=== PATIENT | male | born 1970 | race Caucasian/White ===

== ENCOUNTER 2020-11-08 08:41 | Outpatient (REF) | payer BC, SELFPAY ==
[2020-11-08 11:13] LABS: MANUAL DIFF FLAG NO
[2020-11-08 11:24] LABS: Basophils Percent Auto 0.3 % (0-2); Eosinophils Percent Auto 0.3 % (0-4); Hemoglobin 16.1 g/dl (14.0-18.0); Imm Gran Abs Auto 0.05 X10*3/uL (0.00-0.03); Imm Gran Pct Auto 0.4 % (0.0-0.4); Lymphocytes Absolute Auto 2.6 X10*3/uL (1.2-4.9); Lymphocytes Percent Auto 22.5 % (20-40); Mean Corpuscular HGB Conc 31.6 g/dl (31.0-36.0); Mean Corpuscular Hemoglobin 26.6 pg (27.0-33.0); Mean Corpuscular Volume 84.3 fL (80-98); Mean Platelet Volume 10.4 fL (9.4-12.4); Monocytes Absolute Auto 0.4 X10*3/uL (0.1-1.2); Monocytes Percent Auto 3.5 % (2-11); Neutrophils Absolute Auto 8.5 X10*3/uL (2.0-8.3); Platelet Count 257 X10*3/uL (160-400); Red Blood Count 6.05 X10*6/uL (4.60-5.80); Red Cell Distribution Width 13.1 % (11.0-16.0); White Blood Count 11.7 X10*3/uL (4.8-10.8)
[2020-11-08 11:34] LABS: Glucose Urine UA NEG (NEG); Leukocyte Esterase Urine NEG (NEG); Nitrite Urine NEG (NEG); Specific Gravity - Urine 1.025 (1.005-1.025); Urine Blood 2+ (NEG); Urine Ketones NEG (NEG); Urine Protein 1+ MG/DL (NEG-TRACE)
[2020-11-08 11:45] LABS: Appearance Urine TURBID; Color Urine YELLOW
[2020-11-08 12:12] LABS: Amorphous Sediment Urine 4+ /LPF; Mucus Urine 2+ /LPF; Squamous Epithelial Cell Urine 1+ /LPF; WBC Urine 0 /HPF (0-4)
[2020-11-08 12:16] LABS: Alanine Aminotransferase 34 U/L (0-40); Albumin Level 4.3 g/dL (3.5-5.0); Alkaline Phosphatase 84 U/L (39-117); Anion Gap 14 (12-20); Aspartate Amino Transferase 18 U/L (5-37); Bilirubin Total 0.6 mg/dL (0.0-1.0); Blood Urea Nitrogen 15 mg/dL (9-16); Calcium 9.1 mg/dL (8.4-10.2); Carbon Dioxide 26 mmol/L (22-29); Chloride 102 mmol/L (96-108); Cholesterol 178 mg/dL; Estimated Glomerular Filt Rate > 60; Glucose Fasting 116 mg/dL (60-99); HDL Cholesterol 40 mg/dL; LDL Cholesterol Calculated 122 mg/dl; Potassium 4.3 mmol/L (3.3-5.1); Sodium 138 mmol/L (135-145); Total Protein 7.7 g/dL (6.5-8.0); Triglycerides 80 mg/dL
[2020-11-08 14:22] LABS: Prostate Specific Antigen Scr 0.25 ng/mL (<0.05-4.0)
== END 2020-11-08 08:42 | disposition home or self-care (01) ==
LOC: HO.HMGCLDS 08:41
PROVIDERS: PCP Internal Medicine; Visit Provider Internal Medicine
DX: Z00.00 Encounter for general adult medical examination without abnormal findings (principal)
CPT/HCPCS: 36415; 80053; 80061; 81001; 84153; 85025

== ENCOUNTER 2020-12-01 07:31 | Outpatient (REF) | payer BC, SELFPAY ==
[2020-12-01 07:36] VITALS: BP 163/74; PULSE 60; RESP 16; TEMP 36.3; O2SAT 98
[2020-12-01 07:39] VITALS: BMI 37.3
[2020-12-01 08:28] VITALS: BP 149/82; PULSE 61; RESP 16; O2SAT 97
[2020-12-01 08:40] VITALS: BP 158/82; PULSE 58; RESP 20; O2SAT 97
[2020-12-01 08:56] LABS: CSF Appearance Clear, Colorless; CSF Tube # 1
[2020-12-01 09:18] LABS: Glucose CSF 81 mg/dL; Total Protein CSF 23.2 mg/dL (15-45)
[2020-12-01 09:38] LABS: Appearance CSF CLEAR; CSF Tube # 4; CSF Volume 1.5 ML; Color CSF COLORLESS; Red Blood Cell CSF 0 MM*3; White Blood Cell CSF 0 MM*3
[2020-12-01 09:40] LABS: CSF Monos 0 %; CSF Other Cells % 0 %; Lymphocytes CSF 0 %; Neutrophils CSF 0 %
[2020-12-01 09:50] VITALS: BP 152/70; PULSE 51; RESP 20
[2020-12-01 11:00] VITALS: BP 160/68; PULSE 56; RESP 18; O2SAT 98
== END 2020-12-01 11:00 | disposition home or self-care (01) ==
LOC: HO.MS 07:31
PROVIDERS: PCP Internal Medicine; Visit Provider Psychiatry & Neurology Neurology
PROC: 009U3ZZ Drainage of Spinal Canal, Percutaneous Approach (ICD-10-PCS; CPT 62270; principal; 2020-12-01 08:00)
DX: H47.10 Unspecified papilledema (principal); I10 Essential (primary) hypertension; E66.9 Obesity, unspecified; F41.8 Other specified anxiety disorders; G47.00 Insomnia, unspecified; Z88.0 Allergy status to penicillin; Z88.2 Allergy status to sulfonamides; Z79.899 Other long term (current) drug therapy
CPT/HCPCS: 62270; 82945; 84157; 87015; 87070; 87205; 89051

== ENCOUNTER 2020-12-15 13:37 | Outpatient (REF) | payer BC, SELFPAY ==
[2020-12-15 15:16] LABS: Blood Urea Nitrogen 18 mg/dL (9-16); Estimated Glomerular Filt Rate > 60
== END 2020-12-15 13:38 | disposition home or self-care (01) ==
LOC: HO.LAB 13:37
PROVIDERS: PCP Internal Medicine; Visit Provider Psychiatry & Neurology Neurology
DX: G93.2 Benign intracranial hypertension (principal)
CPT/HCPCS: 36415; 82565; 84520

== ENCOUNTER 2021-06-02 12:03 | Outpatient (REF) | payer BC, SELFPAY ==
[2021-06-02 14:02] LABS: Urine Cytology See Pathology rpt
[2021-06-02 14:08] LABS: MANUAL DIFF FLAG NO
[2021-06-02 14:24] LABS: Basophils Absolute Auto 0.1 X10*3/uL (0.0-0.2); Basophils Percent Auto 0.6 % (0-2); Eosinophils Absolute Auto 0.2 X10*3/uL (0.0-0.4); Eosinophils Percent Auto 2.1 % (0-4); Hematocrit 47.5 % (42-52); Hemoglobin 15.1 g/dl (14.0-18.0); Imm Gran Abs Auto 0.04 X10*3/uL (0.00-0.03); Imm Gran Pct Auto 0.4 % (0.0-0.4); Lymphocytes Absolute Auto 3.3 X10*3/uL (1.2-4.9); Mean Corpuscular HGB Conc 31.8 g/dl (31.0-36.0); Mean Corpuscular Hemoglobin 26.7 pg (27.0-33.0); Mean Corpuscular Volume 84.1 fL (80-98); Mean Platelet Volume 10.8 fL (9.4-12.4); Monocytes Absolute Auto 0.7 X10*3/uL (0.1-1.2); Monocytes Percent Auto 6.9 % (2-11); Neutrophils Absolute Auto 5.4 X10*3/uL (2.0-8.3); Platelet Count 256 X10*3/uL (160-400); Red Blood Count 5.65 X10*6/uL (4.60-5.80); White Blood Count 9.6 X10*3/uL (4.8-10.8)
[2021-06-02 14:37] LABS: Alanine Aminotransferase 27 U/L (0-40); Albumin Level 4.3 g/dL (3.5-5.0); Alkaline Phosphatase 94 U/L (39-117); Anion Gap 12 (12-20); Aspartate Amino Transferase 17 U/L (5-37); Bilirubin Total 0.5 mg/dL (0.0-1.0); Blood Urea Nitrogen 16 mg/dL (9-16); C Reactive Protein 0.52 mg/dL (< or = 0.50); Calcium 9.6 mg/dL (8.4-10.2); Carbon Dioxide 21 mmol/L (22-29); Chloride 109 mmol/L (96-108); Estimated Glomerular Filt Rate > 60; Glucose Random 114 mg/dL (60-115); Potassium 3.7 mmol/L (3.3-5.1); Sodium 138 mmol/L (135-145); Total Protein 7.3 g/dL (6.5-8.0)
== END 2021-06-02 12:04 | disposition home or self-care (01) ==
LOC: HO.HMGCLDS 12:03
PROVIDERS: PCP Internal Medicine; Visit Provider Internal Medicine
DX: I10 Essential (primary) hypertension (principal); E78.00 Pure hypercholesterolemia, unspecified; Z86.010 Personal history of colon polyps
CPT/HCPCS: 36415; 80053; 82550; 85025; 86140; 88112

== ENCOUNTER 2022-10-15 09:11 | Outpatient (REF) | payer BC, SELFPAY ==
[2022-10-15 11:03] LABS: MANUAL DIFF FLAG NO
[2022-10-15 11:13] LABS: Appearance Urine Turbid; Color Urine Yellow; Glucose Urine UA Negative (Negative); Leukocyte Esterase Urine Negative (Negative); Nitrite Urine Negative (Negative); Specific Gravity - Urine 1.025 (1.005-1.025); Urine Blood Negative (Negative); Urine Ketones Negative (Negative); Urine Protein Negative (Neg-Trace)
[2022-10-15 11:14] LABS: Basophils Absolute Auto 0.1 X10*3/uL (0.0-0.2); Basophils Percent Auto 0.7 % (0-2); Eosinophils Absolute Auto 0.2 X10*3/uL (0.0-0.4); Eosinophils Percent Auto 1.6 % (0-4); Hemoglobin 16.1 g/dl (14.0-18.0); Imm Gran Abs Auto 0.04 X10*3/uL (0.00-0.03); Imm Gran Pct Auto 0.4 % (0.0-0.4); Lymphocytes Absolute Auto 3.1 X10*3/uL (1.2-4.9); Lymphocytes Percent Auto 33.7 % (20-40); Mean Corpuscular HGB Conc 31.6 g/dl (31.0-36.0); Mean Corpuscular Hemoglobin 26.3 pg (27.0-33.0); Mean Corpuscular Volume 83.3 fL (80.0-98.0); Mean Platelet Volume 10.6 fL (9.4-12.4); Monocytes Absolute Auto 0.5 X10*3/uL (0.1-1.2); Monocytes Percent Auto 5.8 % (2-11); Neutrophils Absolute Auto 5.3 x10*3/uL (2.0-8.3); Neutrophils Percent Auto 57.8 % (45-73); Platelet Count 237 X10*3/uL (160-400); Red Blood Count 6.12 X10*6/uL (4.60-5.80); Red Cell Distribution Width 13.5 % (11.0-16.0); White Blood Count 9.1 X10*3/uL (4.8-10.8)
[2022-10-15 11:35] LABS: Alanine Aminotransferase 52 U/L (0-40); Albumin Level 4.1 g/dL (3.5-5.0); Alkaline Phosphatase 82 U/L (39-117); Anion Gap 9 (12-20); Aspartate Amino Transferase 24 U/L (5-37); Bilirubin Total 0.5 mg/dL (0.0-1.0); Blood Urea Nitrogen 18 mg/dL (9-16); Calcium 8.9 mg/dL (8.4-10.2); Carbon Dioxide 20 mmol/L (22-29); Chloride 111 mmol/L (96-108); Cholesterol 137 mg/dL; Estimated Glomerular Filt Rate > 60; Glucose Fasting 136 mg/dL (60-99); HDL Cholesterol 35 mg/dL; LDL Cholesterol Calculated 85 mg/dl; Potassium 3.7 mmol/L (3.3-5.1); Sodium 136 mmol/L (135-145); Total Protein 7.2 g/dL (6.5-8.0); Triglycerides 88 mg/dL
[2022-10-15 11:41] LABS: Prostate Specific Antigen 0.35 ng/mL (<0.05-4.0)
[2022-10-23 12:04] LABS: Testosterone, Free 60.2 pg/mL (35.0-155.0); Testosterone, Total 415 ng/dL (250-1100)
== END 2022-10-15 09:12 | disposition home or self-care (01) ==
LOC: HO.HMGCLDS 09:11
PROVIDERS: PCP Internal Medicine; Visit Provider Internal Medicine
DX: Z00.00 Encounter for general adult medical examination without abnormal findings (principal); Z12.5 Encounter for screening for malignant neoplasm of prostate
CPT/HCPCS: 36415; 80053; 80061; 81003; 84153; 84402; 84403; 85025

== ENCOUNTER 2023-01-14 09:38 | Outpatient (REF) | payer BC, SELFPAY ==
[2023-01-14 12:09] LABS: Glucose Random 87 mg/dL (60-115)
[2023-01-14 12:16] LABS: Estimated Average Glucose 103 mg/dL; Hemoglobin A1c % 5.2 %
== END 2023-01-14 09:39 | disposition home or self-care (01) ==
LOC: HO.HMGCLDS 09:38
PROVIDERS: PCP Internal Medicine; Visit Provider Internal Medicine
DX: R73.03 Prediabetes (principal)
CPT/HCPCS: 36415; 82947; 83036

== ENCOUNTER 2024-06-03 09:10 | Day surgery (SDC) | payer BC, SELFPAY ==
--- NOTE | ~2024-06-03 | FL_ITS ---
FLUOROSCOPIC LUMBAR PUNCTURE INDICATION: Idiopathic intracranial hypertension TECHNIQUE: Risks and benefits and possible complications were discussed with the patient and the consent form was signed. Patient was placed prone on the fluoroscopy table. The back was prepped and draped in routine sterile fashion. Betadine was used as a skin antiseptic. Utilizing fluoroscopic guidance, the L4-L5 interlaminar space was accessed with a 22 gague Charlette spinal needle and clear CSF fluid obtained. Opening pressure was 26 cm H2O. 10 cc of fluid was sent for analysis. The needle was removed without immediate complications. Total fluoroscopy time: 0.5 min FL/FL guided lumbar puncture LP IMPRESSION: Successful fluoroscopic-guided lumbar puncture. Opening pressure was 26 cm H2O. This procedure was performed by Jose Alfredo Cartwright PA-C and supervised by Dr. Beckett. Electronically signed by: Robel Beckett MD 06/04/2024 10:11 AM EDT
[2024-06-03 09:20] VITALS: BMI 32.8
[2024-06-03 11:58] VITALS: BP 126/49; PULSE 45; RESP 16; TEMP 36.2; O2SAT 99
[2024-06-03 12:15] VITALS: BP 118/64; PULSE 49; RESP 16; O2SAT 99
[2024-06-03 12:30] VITALS: BP 122/65; PULSE 50; RESP 16; TEMP 36.2; O2SAT 99
[2024-06-03 12:34] LABS: CSF Appearance Clear, Colorless; CSF Tube # 1
[2024-06-03 12:43] LABS: Glucose CSF 69 mg/dL; Total Protein CSF 35.2 mg/dL (15-45)
[2024-06-03 13:11] LABS: Appearance CSF CLEAR; CSF Tube # 4; CSF Volume 2.5 ML; Color CSF COLORLESS; Red Blood Cell CSF 0 MM*3; White Blood Cell CSF 0 MM*3
== END 2024-06-03 12:39 | disposition home or self-care (01) ==
PROVIDERS: Physician Assistant Surgical; PCP Internal Medicine; Visit Provider Psychiatry & Neurology Neurology
PROC: 009U3ZZ Drainage of Spinal Canal, Percutaneous Approach (ICD-10-PCS; CPT 62270; principal; 2024-06-03 11:00)
DX: G93.2 Benign intracranial hypertension (principal); H47.10 Unspecified papilledema; I10 Essential (primary) hypertension; E78.5 Hyperlipidemia, unspecified; E66.9 Obesity, unspecified; Z68.31 Body mass index [BMI] 31.0-31.9, adult; F32.A Depression, unspecified; F41.9 Anxiety disorder, unspecified; Z79.899 Other long term (current) drug therapy; Z88.0 Allergy status to penicillin; Z88.2 Allergy status to sulfonamides
CPT/HCPCS: 62328; 82945; 84157; 87015; 87070; 87205; 89051

== ENCOUNTER → 2024-06-03 11:00 | Outpatient (BNV) | payer BC, SELFPAY | PROVIDERS: PCP Internal Medicine; Visit Provider Radiology Diagnostic Radiology | DX: G93.2 Benign intracranial hypertension (principal) | CPT/HCPCS: 62328 ==

== ENCOUNTER 2024-06-13 09:11 | Outpatient (REF) | payer BC, SELFPAY ==
[2024-06-13 11:07] LABS: MANUAL DIFF FLAG NO
[2024-06-13 11:16] LABS: Basophils Absolute Auto 0.1 X10*3/uL (0.0-0.2); Basophils Percent Auto 0.8 % (0-2); Eosinophils Absolute Auto 0.2 X10*3/uL (0.0-0.4); Eosinophils Percent Auto 2.3 % (0-4); Hematocrit 50.3 % (42.0-52.0); Hemoglobin 16.3 g/dl (14.0-18.0); Imm Gran Abs Auto 0.04 X10*3/uL (0.00-0.03); Imm Gran Pct Auto 0.4 % (0.0-0.4); Lymphocytes Absolute Auto 3.3 X10*3/uL (1.2-4.9); Mean Corpuscular HGB Conc 32.4 g/dl (31.0-36.0); Mean Corpuscular Hemoglobin 27.3 pg (27.0-33.0); Mean Corpuscular Volume 84.3 fL (80.0-98.0); Mean Platelet Volume 9.9 fL (9.4-12.4); Monocytes Absolute Auto 0.7 X10*3/uL (0.1-1.2); Neutrophils Absolute Auto 5.2 x10*3/uL (2.0-8.3); Neutrophils Percent Auto 54.5 % (45-73); Platelet Count 227 X10*3/uL (160-400); Red Blood Count 5.97 X10*6/uL (4.60-5.80); Red Cell Distribution Width 14.1 % (11.0-16.0); White Blood Count 9.5 X10*3/uL (4.8-10.8)
[2024-06-13 11:21] LABS: Estimated Average Glucose 103 mg/dL; Hemoglobin A1c % 5.2 % (<6.0)
[2024-06-13 11:29] LABS: Alanine Aminotransferase 29 U/L (0-40); Albumin Level 4.2 g/dL (3.5-5.0); Alkaline Phosphatase 76 U/L (39-117); Anion Gap 8 (12-20); Aspartate Amino Transferase 18 U/L (5-37); Bilirubin Total 0.5 mg/dL (0.0-1.0); Blood Urea Nitrogen 22 mg/dL (9-16); Calcium 9.5 mg/dL (8.4-10.2); Carbon Dioxide 20 mmol/L (22-29); Chloride 111 mmol/L (96-108); Cholesterol 185 mg/dL (<200); Estimated Glomerular Filt Rate > 60; Glucose Fasting 88 mg/dL (60-99); HDL Cholesterol 34 mg/dL (>40); LDL Cholesterol Calculated 129 mg/dL (<100); Potassium 4.1 mmol/L (3.3-5.1); Sodium 135 mmol/L (135-145); Total Protein 7.6 g/dL (6.5-8.0); Triglycerides 114 mg/dL (<150)
[2024-06-13 11:41] LABS: Prostate Specific Antigen Scr 0.26 ng/mL (<0.05-4.0)
[2024-06-13 11:52] LABS: Microalbum/Creatinine Ratio Ur 3.7 ug/mg cr (<30)
== END 2024-06-13 09:12 | disposition home or self-care (01) ==
LOC: HO.HMGCLDS 09:11
PROVIDERS: PCP Internal Medicine; Visit Provider Internal Medicine
DX: I10 Essential (primary) hypertension (principal); E78.00 Pure hypercholesterolemia, unspecified; R73.03 Prediabetes; Z12.5 Encounter for screening for malignant neoplasm of prostate
CPT/HCPCS: 36415; 80053; 80061; 82043; 82570; 83036; 84153; 85025

== ENCOUNTER 2025-03-22 08:40 | Outpatient (REF) | payer BC, SELFPAY ==
--- OUTSIDE RECORDS SUMMARY | 2025-03-22 09:01 | XMS_ITS | Patient Health Record ---
Author Organization [facility] [address] Address [address] [place] [address] Care Team Providers Care Social Science Analyst Name Role Phone ERON TRISTAN Unavailable [phone] Allergies Allergen (clinical drug ingredient) Drug/Non Drug Allergy documented on EMR Reaction Allergy Type Onset Date Status Substance with sulfonamide structure and antibacterial mechanism of action (substance) Sulfa Antibiotics Unknown Drug Allergy Active Results Component Value Reference Range Notes EKG (Not yet reviewed by pro vider) Interpretation: Performing Lab: Notes/Report: ECGDiastolicBP 60 ECGHr 55 ECGPRInterval 164 ECGPWaveAxis 67 ECGQRSDuration 102 ECGQrsWaveAxis 24 ECGQTcInterval 386 ECGQTInterval 394 ECGSystolicBP 132 ECGTWaveAxis -14 RR_DiastolicBP 0 RR_MaxRRInterval 0 RR_MeanHR 0 RR_MeanRRInterval 0 RR_MinRRInterval 0 RR_NumBeats 0 RR_NumNormalBeats 0 RR_SystolicBP 0 Reason For Referral No Information Medications Medication SIG (Take, Route, Frequency, Duration) Notes Start Date End Date Status LORazepam 1 MG 1 tablet at bedtime as needed Orally Once a day Active traZODone HCl 50 MG 1 tablet at bedtime as needed Orally Once a day Active acetaZOLAMIDE ER 500 MG 1 capsule Orally Twice a day Active Zepbound 7.5 MG/0.5ML 0.5 mL Subcutaneou s weekly for 30 days 09/16/2024 Not-Taking Simvastatin 20 MG 1 tablet in the even ing Orally Once a day Active FLUoxetine HCl 20 MG 1 tablet Orally Onc e a day Active Social History Tobacco Use: Social History Observation Description Date Details (start date - stop date) Current Smoker NA - NA Tobacco Use/Smoking Question Answer Notes Are you a current smoker How often do you smoke cigarettes? every day Section Notes: Tob: Started at age 8, quit 1996, 27 years ( 1 PPD) ETOH: None Drug: None Work: [employer] Problems Problem Type SNOMED Code ICD Code Onset Dates Problem Status W/U Status Risk Notes Problem 250177264 Other obesity du e to excess calories (E66.09) Active confirmed Problem Hyperlipidemia, unspecified (E78.5) Active confirmed Problem Hydrocephalus (897766096) Hydrocephalus, unspecified (G91.9) Active confirmed Problem 92478707 Benign intracranial hypertension (G93.2) Active confirmed Problem 58263656 Essential (primary) hypertension (I10) Active confirmed Problem 32607864 Bradycardia, unspecified (R00.1) Active confirmed Problem 80117541 Hyperlipidemia, unspecified hyperlipidemia type (E78.5) Active confirmed Problem 39106001 Depression, unspecified depression type (F32.9) Active confirmed Problem 19354706 Hypothyroidism, unspecified type (E03.9) Active confirmed Problem Obese class I (finding) (376343638472009) Obesity (BMI 30.0-34.9) (E66.9) Active confirmed Problem 417802011 Obesity (BMI 30-39.9) (E66.9) Active confirmed Problem 612117491 Body mass index [BMI] 32.0-32.9, adult (Z68.32) Active confirmed Problem 936522413 Body mass index [BMI] 33.0-33.9, adult (Z68.33) Active confirmed Problem 964895309 Body mass index [BMI] 34.0-34.9, adult (Z68.34) Active confirmed Problem Obese class II (506418315276789) BMI 37.0-37.9, adult (Z68.37) Active confirmed Problem BMI 30+ - obesity (449605823) BMI 32.0-32.9,adult (Z68.32) Active confirmed Problem 99571627 Anemia due to vitamin B12 deficiency, unspecified B12 deficiency type (D51.9) Active confirmed Problem Body mass index 30.00 to 34.99 (520701953782621) BMI 34.0-34.9,adult (Z68.34) Active confirmed Vital Signs Heart Rate 63 /min 02/25/2025 Oximetry 96 % 02/25/2025 Blood pressure diastolic 60 mm Hg 02/25/2025 Height 69 in 02/25/2025 Blood pressure systolic 132 mm Hg 02/25/2025 Weight 218.6 lbs 02/25/2025 BMI 32.28 kg/m2 02/25/2025 Encounters Encounter Location Date Provider Diagnosis [facility] [address] [place] [address] 04/14/2024 ERON AZALEA Obesity (BMI 30-39.9 ) E66.9 ; BMI 34.0-34.9,adult Z68.34 ; Hydrocephalus, unspecified G91.9 and Dietary counseling and surveillance Z71.[address] [facility] [address] [place], [place] 06/02/2024 ERON AZALEA Obesity (BMI 30-39.9 ) E66.9 ; BMI 32.0-32.9,adult Z68.32 ; Hydrocephalus, unspecified G91.9 and Dietary counseling and surveillance Z71.3 [facility] [address] [place] [address] 07/21/2024 ERON AZALEA Obesity (BMI 30-39.9 ) E66.9 ; BMI 32.0-32.9,adult Z68.32 ; Hydrocephalus, unspecified G91.9 and Dietary counseling and surveillance Z71.[address] [facility] [address] [place] [phone] 09/16/2024 ERON AZALEA Obesity (BMI 30-39.9 ) E66.9 ; BMI 32.0-32.9,adult Z68.32 ; Hydrocephalus, unspecified G91.9 and Dietary counseling and surveillance Z71.3 [facility] [address] [place] [address] 02/25/2025 ERON AZALEA Slow heart rate R00. 1 ; Obesity (BMI 30-39.9) E66.9 ; BMI 32.0-32.9,adult Z68.32 ; Hydrocephalus, unspecified G91.9 ; Dietary counseling and surveillance Z71.3 and Encounter for blood pressure examination Z01.30 [facility] [address] [place] [phone] 03/30/2024 ERON AZALEA [facility] [address] [place] [address] 11/03/2024 ERON TRISTAN [facility] [address] [facility] [address] [place] [phone] 11/05/[address]STAN [facility] [address] [place] [address] 02/25/2025 ERON TRISTAN Bradycardia, unspeci fied R00.1 ; Annual physical exam Z00.00 ; Hyperlipidemia, unspecified hyperlipidemia type E78.5 ; Hypothyroidism, unspecified type E03.9 and Anemia due to vitamin B12 deficiency, unspecified B12 deficiency type D51.9 Assessments Encounter Date Diagnosis (ICD Code) Assessment Notes Treatment Notes Treatment Clinical Notes Section Notes 04/14/2024 Obesity (BMI 30-39.9) (ICD-10 - E66.9) # Hydrocephalus; Undergoing treatment in [facility] on May 05 2024, instructed to hold Zepound starting next week # HTN. Currently on antihypertensives, 120/80 mmHg in office today. # Obesity 01/31/23: BMI 32, Weight 221. Continue Saxenda. Patient unsure if he needs refill. Denies side effects. Continue adequate protein intake of 80 grams a day, water intake 80 oz of water. Increase muscle mass. 06/13/23 BMI 32.56 Weight 220.5 Patient has been off Saxenda due to supply issues x1.5 weeks [facility] since January down 6lbs of fat and up 4lbs of muscle. Discussed with patient increasing water intake and protein intake and possibly of getting medication from [facility], [facility] or [facility], Mail order, if not consider [facility]. Talking about slowly titrating back up not to start back on 3mg 01/16/24: BMI 33, Weight 231. 10 lb weight gain since 05/2023. Discussed Zepbound as option, will need PA. Can take up to 30 days for PA to be responded to. Discussed eating high protein lunch and increasing water intake. Denies current issues with constipation 04/14/24: BMI 32.81, Weight 222.2. Patient currently taking Zepound 5mg . Endorses slight nausea. Denies diarrhea / constipation. Encouraged to keep protein intake high and excerise. Will receive MICC injection today in office. Advised to stop zepound next week due to LP on May 01 for hydrocephalous, then continue Zepound a few days after procedure. Total time spent with patient was 30 minutes, over half the time being [id number] interaction. Case discussed with collaborating physician Shayla Josue who reviewed the assessment and plan. Chart, medications, labs, vital signs reviewed. Dictation was accomplished with the use of [employer] voice recognition software, prone to medical misidentifications and grammatical errors. This is unintentional and the practitioner does try to identify and correct these, but some could still be present. Please do not hesitate to contact practitioner for clarification. All questions answered to patients satisfaction. Patient verbalized understanding of diagnosis and treatments explained. To call sooner prior to next visit it any questions/concerns arise. 04/14/2024 BMI 34.0-34.9,adult (ICD-10 - Z68.34) # Hydrocephalus; Undergoing treatment in [facility] on May 05 2024, instructed to hold Zepound starting next week # HTN. Currently on antihypertensives, 120/80 mmHg in office today. # Obesity 01/31/23: BMI 32, Weight 221. Continue Saxenda. Patient unsure if he needs refill. Denies side effects. Continue adequate protein intake of 80 grams a day, water intake 80 oz of water. Increase muscle mass. 06/13/23 BMI 32.56 Weight 220.5 Patient has been off Saxenda due to supply issues x1.5 weeks [facility] since January down 6lbs of fat and up 4lbs of muscle. Discussed with patient increasing water intake and protein intake and possibly of getting medication from [facility], if not consider [facility]. Talking about slowly titrating back up not to start back on 3mg 01/16/24: BMI 33, Weight 231. 10 lb weight gain since 05/2023. Discussed Zepbound as option, will need PA. Can take up to 30 days for PA to be responded to. Discussed eating high protein lunch and increasing water intake. Denies current issues with constipation 04/14/24: BMI 32.81, Weight 222.2. Patient currently taking Zepound 5mg . Endorses slight nausea. Denies diarrhea / constipation. Encouraged to keep protein intake high and excerise. Will receive MICC injection today in office. Advised to stop zepound next week due to LP on May 01 for hydrocephalous, then continue Zepound a few days after procedure. Total time spent with patient was 30 minutes, over half the time being [id number] interaction. Case discussed with collaborating physician Shayla Josue who reviewed the assessment and plan. Chart, medications, labs, vital signs reviewed. Dictation was accomplished with the use of [employer] voice recognition software, prone to medical misidentifications and grammatical errors. This is unintentional and the practitioner does try to identify and correct these, but some could still be present. Please do not hesitate to contact practitioner for clarification. All questions answered to patients satisfaction. Patient verbalized understanding of diagnosis and treatments explained. To call sooner prior to next visit it any questions/concerns arise. 06/02/2024 Obesity (BMI 30-39.9) (ICD-10 - E66.9) # Hydrocephalus; Undergoing treatment in [facility] on Jun 02 2024, instructed to hold Zepound starting next week # HTN. Currently on antihypertensives, 120/80 mmHg in office today. # Obesity 01/31/23: BMI 32, Weight 221. Continue Saxenda. Patient unsure if he needs refill. Denies side effects. Continue adequate protein intake of 80 grams a day, water intake 80 oz of water. Increase muscle mass. 06/13/23 BMI 32.56 Weight 220.5 Patient has been off Saxenda due to supply issues x1.5 weeks [facility] since January down 6lbs of fat and up 4lbs of muscle. Discussed with patient increasing water intake and protein intake and possibly of getting medication [facility], [facility], if not consider [facility]. Talking about slowly titrating back up not to start back on 3mg 01/16/24: BMI 33, Weight 231. 10 lb weight gain since 05/2023. Discussed Zepbound as option, will need PA. Can take up to 30 days for PA to be responded to. Discussed eating high protein lunch and increasing water intake. Denies current issues with constipation 04/14/24: BMI 32.81, Weight 222.2. Patient currently taking Zepound 5mg . Endorses slight nausea. Denies diarrhea / constipation. Encouraged to keep protein intake high and excerise. Will receive MICC injection today in office. Advised to stop zepound next week due to LP on May 01 for hydrocephalous, then continue Zepound a few days after procedure. 06/02/24: BMI 32, Weight 222. Lost 4 lb of fat since last visit. Reports he skips lunch often, only getting about 60 grams of protein. Needs to increase protein intake. Has held Zepbound x 2 weeks in prep for tomorrow. Will refill Zepbound 5 mg subcu today Total time spent with patient was 30 minutes, over half the time being [id number] interaction. Case discussed with collaborating physician Shayla Josue who reviewed the assessment and plan. Chart, medications, labs, vital signs reviewed. Dictation was accomplished with the use of [employer] voice recognition software, prone to medical misidentifications and grammatical errors. This is unintentional and the practitioner does try to identify and correct these, but some could still be present. Please do not hesitate to contact practitioner for clarification. All questions answered to patients satisfaction. Patient verbalized understanding of diagnosis and treatments explained. To call sooner prior to next visit it any questions/concerns arise. 06/02/2024 BMI 32.0-32.9,adult (ICD-10 - Z68.32) # Hydrocephalus; Undergoing treatment in [facility] on Jun 02 2024, instructed to hold Zepound starting next week # HTN. Currently on antihypertensives, 120/80 mmHg in office today. # Obesity 01/31/23: BMI 32, Weight 221. Continue Saxenda. Patient unsure if he needs refill. Denies side effects. Continue adequate protein intake of 80 grams a day, water intake 80 oz of water. Increase muscle mass. 06/13/23 BMI 32.56 Weight 220.5 Patient has been off Saxenda due to supply issues x1.5 weeks [facility] since January down 6lbs of fat and up 4lbs of muscle. Discussed with patient increasing water intake and protein intake and possibly of getting medication from [facility], [facility] or [facility], Mail order, if not consider [facility]. Talking about slowly titrating back up not to start back on 3mg 01/16/24: BMI 33, Weight 231. 10 lb weight gain since 05/2023. Discussed Zepbound as option, will need PA. Can take up to 30 days for PA to be responded to. Discussed eating high protein lunch and increasing water intake. Denies current issues with constipation 04/14/24: BMI 32.81, Weight 222.2. Patient currently taking Zepound 5mg . Endorses slight nausea. Denies diarrhea / constipation. Encouraged to keep protein intake high and excerise. Will receive MICC injection today in office. Advised to stop zepound next week due to LP on May 01 for hydrocephalous, then continue Zepound a few days after procedure. 06/02/24: BMI 32, Weight 222. Lost 4 lb of fat since last visit. Reports he skips lunch often, only getting about 60 grams of protein. Needs to increase protein intake. Has held Zepbound x 2 weeks in prep for LP tomorrow. Will refill Zepbound 5 mg subcu today Total time spent with patient was 30 minutes, over half the time being [id number] interaction. Case discussed with collaborating physician Shayla Josue who reviewed the assessment and plan. Chart, medications, labs, vital signs reviewed. Dictation was accomplished with the use of [employer] voice recognition software, prone to medical misidentifications and grammatical errors. This is unintentional and the practitioner does try to identify and correct these, but some could still be present. Please do not hesitate to contact practitioner for clarification. All questions answered to patients satisfaction. Patient verbalized understanding of diagnosis and treatments explained. To call sooner prior to next visit it any questions/concerns arise. 07/21/2024 Obesity (BMI 30-39.9) (ICD-10 - E66.9) # Hydrocephalus; Undergoing treatment in [facility] on Jun 02 2024, instructed to hold Zepound starting next week # HTN. Currently on antihypertensives, 120/80 mmHg in office today. # Obesity 01/31/23: BMI 32, Weight 221. Continue Saxenda. Patient unsure if he needs refill. Denies side effects. Continue adequate protein intake of 80 grams a day, water intake 80 oz of water. Increase muscle mass. 06/13/23 BMI 32.56 Weight 220.5 Patient has been off Saxenda due to supply issues x1.5 weeks [facility] since January down 6lbs of fat and up 4lbs of muscle. Discussed with patient increasing water intake and protein intake and possibly of getting medication from [facility], [facility] or [facility], Mail order, if not consider [facility]. Talking about slowly titrating back up not to start back on 3mg 01/16/24: BMI 33, Weight 231. 10 lb weight gain since 05/2023. Discussed Zepbound as option, will need PA. Can take up to 30 days for PA to be responded to. Discussed eating high protein lunch and increasing water intake. Denies current issues with constipation 04/14/24: BMI 32.81, Weight 222.2. Patient currently taking Zepound 5mg . Endorses slight nausea. Denies diarrhea / constipation. Encouraged to keep protein intake high and excerise. Will receive MICC injection today in office. Advised to stop zepound next week due to LP on May 01 for hydrocephalous, then continue Zepound a few days after procedure. 06/02/24: BMI 32, Weight 222. Lost 4 lb of fat since last visit. Reports he skips lunch often, only getting about 60 grams of protein. Needs to increase protein intake. Has held Zepbound x 2 weeks in prep for LP tomorrow. Will refill Zepbound 5 mg subcu today 07/21/24: BMI 32, Weight 218. Congratulated on efforts. Will increase to Zepbound 7.5 mg subcu weekly. Continue adequate protein intake and exrecise. Total time spent with patient was 30 minutes, over half the time being [id number] interaction. Case discussed with collaborating physician Shayla Josue who reviewed the assessment and plan. Chart, medications, labs, vital signs reviewed. Dictation was accomplished with the use of [employer] voice recognition software, prone to medical misidentifications and grammatical errors. This is unintentional and the practitioner does try to identify and correct these, but some could still be present. Please do not hesitate to contact practitioner for clarification. All questions answered to patients satisfaction. Patient verbalized understanding of diagnosis and treatments explained. To call sooner prior to next visit it any questions/concerns arise. 07/21/2024 BMI 32.0-32.9,adult (ICD-10 - Z68.32) # Hydrocephalus; Undergoing treatment in [facility] on Jun 02 2024, instructed to hold Zepound starting next week # HTN. Currently on antihypertensives, 120/80 mmHg in office today. # Obesity 01/31/23: BMI 32, Weight 221. Continue Saxenda. Patient unsure if he needs refill. Denies side effects. Continue adequate protein intake of 80 grams a day, water intake 80 oz of water. Increase muscle mass. 06/13/23 BMI 32.56 Weight 220.5 Patient has been off Saxenda due to supply issues x1.5 weeks [facility] since January down 6lbs of fat and up 4lbs of muscle. Discussed with patient increasing water intake and protein intake and possibly of getting medication from [facility], [facility] or [facility], Mail order, if not consider [facility]. Talking about slowly titrating back up not to start back on 3mg 01/16/24: BMI 33, Weight 231. 10 lb weight gain since 05/2023. Discussed Zepbound as option, will need PA. Can take up to 30 days for PA to be responded to. Discussed eating high protein lunch and increasing water intake. Denies current issues with constipation 04/14/24: BMI 32.81, Weight 222.2. Patient currently taking Zepound 5mg . Endorses slight nausea. Denies diarrhea / constipation. Encouraged to keep protein intake high and excerise. Will receive MICC injection today in office. Advised to stop zepound next week due to LP on May 01 for hydrocephalous, then continue Zepound a few days after procedure. 06/02/24: BMI 32, Weight 222. Lost 4 lb of fat since last visit. Reports he skips lunch often, only getting about 60 grams of protein. Needs to increase protein intake. Has held Zepbound x 2 weeks in prep for LP tomorrow. Will refill Zepbound 5 mg subcu today 07/21/24: BMI 32, Weight 218. Congratulated on efforts. Will increase to Zepbound 7.5 mg subcu weekly. Continue adequate protein intake and exrecise. Total time spent with patient was 30 minutes, over half the time being [id number] interaction. Case discussed with collaborating physician Shayla Josue who reviewed the assessment and plan. Chart, medications, labs, vital signs reviewed. Dictation was accomplished with the use of [employer] voice recognition software, prone to medical misidentifications and grammatical errors. This is unintentional and the practitioner does try to identify and correct these, but some could still be present. Please do not hesitate to contact practitioner for clarification. All questions answered to patients satisfaction. Patient verbalized understanding of diagnosis and treatments explained. To call sooner prior to next visit it any questions/concerns arise. 09/16/2024 Obesity (BMI 30-39.9) (ICD-10 - E66.9) # Hydrocephalus; Undergoing treatment in [facility] on Jun 02 2024 # HTN. Currently on antihypertensives, 120/80 mmHg in office today. # Obesity 01/31/23: BMI 32, Weight 221. Continue Saxenda. Patient unsure if he needs refill. Denies side effects. Continue adequate protein intake of 80 grams a day, water intake 80 oz of water. Increase muscle mass. 06/13/23 BMI 32.56 Weight 220.5 Patient has been off Saxenda due to supply issues x1.5 weeks [facility] since January down 6lbs of fat and up 4lbs of muscle. Discussed with patient increasing water intake and protein intake and possibly of getting medication from [facility], [facility] or [facility], Mail order, if not consider [facility]. Talking about slowly titrating back up not to start back on 3mg 01/16/24: BMI 33, Weight 231. 10 lb weight gain since 05/2023. Discussed Zepbound as option, will need PA. Can take up to 30 days for PA to be responded to. Discussed eating high protein lunch and increasing water intake. Denies current issues with constipation 04/14/24: BMI 32.81, Weight 222.2. Patient currently taking Zepound 5mg . Endorses slight nausea. Denies diarrhea / constipation. Encouraged to keep protein intake high and excerise. Will receive MICC injection today in office. Advised to stop zepound next week due to LP on May 01 for hydrocephalous, then continue Zepound a few days after procedure. 06/02/24: BMI 32, Weight 222. Lost 4 lb of fat since last visit. Reports he skips lunch often, only getting about 60 grams of protein. Needs to increase protein intake. Has held Zepbound x 2 weeks in prep for LP tomorrow. Will refill Zepbound 5 mg subcu today 07/21/24: BMI 32, Weight 218. Congratulated on efforts. Will increase to Zepbound 7.5 mg subcu weekly. Continue adequate protein intake and exrecise. 09/16/24: BMI 32, Weight 213. Never increase Zepbound, will increase to 7.5 mg. Doing well wiht fat loss. Congratulated on efforts. Total time spent with patient was 30 minutes, over half the time being [id number] interaction. Case discussed with collaborating physician Sarah Josue who reviewed the assessment and plan. Chart, medications, labs, vital signs reviewed. Dictation was accomplished with the use of [employer] voice recognition software, prone to medical misidentifications and grammatical errors. This is unintentional and the practitioner does try to identify and correct these, but some could still be present. Please do not hesitate to contact practitioner for clarification. All questions answered to patients satisfaction. Patient verbalized understanding of diagnosis and treatments explained. To call sooner prior to next visit it any questions/concerns arise. 09/16/2024 BMI 32.0-32.9,adult (ICD-10 - Z68.32) # Hydrocephalus; Undergoing treatment in [facility] on Jun 02 2024 # HTN. Currently on antihypertensives, 120/80 mmHg in office today. # Obesity 01/31/23: BMI 32, Weight 221. Continue Saxenda. Patient unsure if he needs refill. Denies side effects. Continue adequate protein intake of 80 grams a day, water intake 80 oz of water. Increase muscle mass. 06/13/23 BMI 32.56 Weight 220.5 Patient has been off Saxenda due to supply issues x1.5 weeks [facility] since January down 6lbs of fat and up 4lbs of muscle. Discussed with patient increasing water intake and protein intake and possibly of getting medication from [facility], [facility] if not [facility]. Talking about slowly titrating back up not to start back on 3mg 01/16/24: BMI 33, Weight 231. 10 lb weight gain since 05/2023. Discussed Zepbound as option, will need PA. Can take up to 30 days for PA to be responded to. Discussed eating high protein lunch and increasing water intake. Denies current issues with constipation 04/14/24: BMI 32.81, Weight 222.2. Patient currently taking Zepound 5mg . Endorses slight nausea. Denies diarrhea / constipation. Encouraged to keep protein intake high and excerise. Will receive MICC injection today in office. Advised to stop zepound next week due to LP on May 01 for hydrocephalous, then continue Zepound a few days after procedure. 06/02/24: BMI 32, Weight 222. Lost 4 lb of fat since last visit. Reports he skips lunch often, only getting about 60 grams of protein. Needs to increase protein intake. Has held Zepbound x 2 weeks in prep for LP tomorrow. Will refill Zepbound 5 mg subcu today 07/21/24: BMI 32, Weight 218. Congratulated on efforts. Will increase to Zepbound 7.5 mg subcu weekly. Continue adequate protein intake and exrecise. 09/16/24: BMI 32, Weight 213. Never increase Zepbound, will increase to 7.5 mg. Doing well wiht fat loss. Congratulated on efforts. Total time spent with patient was 30 minutes, over half the time being [id number] interaction. Case discussed with collaborating physician Sarah Josue who reviewed the assessment and plan. Chart, medications, labs, vital signs reviewed. Dictation was accomplished with the use of [employer] voice recognition software, prone to medical misidentifications and grammatical errors. This is unintentional and the practitioner does try to identify and correct these, but some could still be present. Please do not hesitate to contact practitioner for clarification. All questions answered to patients satisfaction. Patient verbalized understanding of diagnosis and treatments explained. To call sooner prior to next visit it any questions/concerns arise. 02/25/2025 Obesity (BMI 30-39.9) (ICD-10 - E66.9) # Hydrocephalus; Undergoing treatment in [place]. Followed by Dr. Lee locally. # HTN. Currently on antihypertensives, 120/80 mmHg in office today. Discotninued due to low HR # Obesity: Formerly on Zepbound, copay too high # BRadycardia: EKG showing bradycardia. Reportedly issue in past. WIll obtain cardiology records. EKG shows bradycarida. Case discussed with collaborating physician Sarah Josue who reviewed the assessment and plan. Chart, medications, labs, vital signs reviewed. Dictation was accomplished with the use of [employer] voice recognition software, prone to medical misidentifications and grammatical errors. This is unintentional and the practitioner does try to identify and correct these, but some could still be present. Please do not hesitate to contact practitioner for clarification. All questions answered to patients satisfaction. Patient verbalized understanding of diagnosis and treatments explained. To call sooner prior to next visit it any questions/concerns arise. 02/25/2025 Slow heart rate (ICD-10 - R00.1) # Hydrocephalus; Undergoing treatment in [place]. Followed by Dr. Lee locally. # HTN. Currently on antihypertensives, 120/80 mmHg in office today. Discotninued due to low HR # Obesity: Formerly on Zepbound, copay too high # BRadycardia: EKG showing bradycardia. Reportedly issue in past. WIll obtain cardiology records. EKG shows bradycarida. Case discussed with collaborating physician Sarah Josue who reviewed the assessment and plan. Chart, medications, labs, vital signs reviewed. Dictation was accomplished with the use of [employer] voice recognition software, prone to medical misidentifications and grammatical errors. This is unintentional and the practitioner does try to identify and correct these, but some could still be present. Please do not hesitate to contact practitioner for clarification. All questions answered to patients satisfaction. Patient verbalized understanding of diagnosis and treatments explained. To call sooner prior to next visit it any questions/concerns arise. 02/25/2025 Bradycardia, unspecified (ICD-10 - R00.1) 02/25/2025 Annual physical exam (ICD-10 - Z00.00) 02/25/2025 BMI 32.0-32.9,adult (ICD-10 - Z68.32) # Hydrocephalus; Undergoing treatment in [place]. Followed by Dr. Lee locally. # HTN. Currently on antihypertensives, 120/80 mmHg in office today. Discotninued due to low HR # Obesity: Formerly on Zepbound, copay too high # BRadycardia: EKG showing bradycardia. Reportedly issue in past. WIll obtain cardiology records. EKG shows bradycarida. Case discussed with collaborating physician Sarah Josue who reviewed the assessment and plan. Chart, medications, labs, vital signs reviewed. Dictation was accomplished with the use of [employer] voice recognition software, prone to medical misidentifications and grammatical errors. This is unintentional and the practitioner does try to identify and correct these, but some could still be present. Please do not hesitate to contact practitioner for clarification. All questions answered to patients satisfaction. Patient verbalized understanding of diagnosis and treatments explained. To call sooner prior to next visit it any questions/concerns arise. 09/16/2024 Hydrocephalus, unspecified (ICD-10 - G91.9) # Hydrocephalus; Undergoing treatment in [facility] on Jun 02 2024 # HTN. Currently on antihypertensives, 120/80 mmHg in office today. # Obesity 01/31/23: BMI 32, Weight 221. Continue Saxenda. Patient unsure if he needs refill. Denies side effects. Continue adequate protein intake of 80 grams a day, water intake 80 oz of water. Increase muscle mass. 06/13/23 BMI 32.56 Weight 220.5 Patient has been off Saxenda due to supply issues x1.5 weeks [facility] since January down 6lbs of fat and up 4lbs of muscle. Discussed with patient increasing water intake and protein intake and possibly of getting medication from [facility], [facility] or [facility], Mail order, if not consider [facility]. Talking about slowly titrating back up not to start back on 3mg 01/16/24: BMI 33, Weight 231. 10 lb weight gain since 05/2023. Discussed Zepbound as option, will need PA. Can take up to 30 days for PA to be responded to. Discussed eating high protein lunch and increasing water intake. Denies current issues with constipation 04/14/24: BMI 32.81, Weight 222.2. Patient currently taking Zepound 5mg . Endorses slight nausea. Denies diarrhea / constipation. Encouraged to keep protein intake high and excerise. Will receive MICC injection today in office. Advised to stop zepound next week due to LP on May 01 for hydrocephalous, then continue Zepound a few days after procedure. 06/02/24: BMI 32, Weight 222. Lost 4 lb of fat since last visit. Reports he skips lunch often, only getting about 60 grams of protein. Needs to increase protein intake. Has held Zepbound x 2 weeks in prep for LP tomorrow. Will refill Zepbound 5 mg subcu today 07/21/24: BMI 32, Weight 218. Congratulated on efforts. Will increase to Zepbound 7.5 mg subcu weekly. Continue adequate protein intake and exrecise. 09/16/24: BMI 32, Weight 213. Never increase Zepbound, will increase to 7.5 mg. Doing well wiht fat loss. Congratulated on efforts. Total time spent with patient was 30 minutes, over half the time being [id number] interaction. Case discussed with collaborating physician Sarah Josue who reviewed the assessment and plan. Chart, medications, labs, vital signs reviewed. Dictation was accomplished with the use of [employer] voice recognition software, prone to medical misidentifications and grammatical errors. This is unintentional and the practitioner does try to identify and correct these, but some could still be present. Please do not hesitate to contact practitioner for clarification. All questions answered to patients satisfaction. Patient verbalized understanding of diagnosis and treatments explained. To call sooner prior to next visit it any questions/concerns arise. 07/21/2024 Hydrocephalus, unspecified (ICD-10 - G91.9) # Hydrocephalus; Undergoing treatment in [facility] on Jun 02 2024, instructed to hold Zepound starting next week # HTN. Currently on antihypertensives, 120/80 mmHg in office today. # Obesity 01/31/23: BMI 32, Weight 221. Continue Saxenda. Patient unsure if he needs refill. Denies side effects. Continue adequate protein intake of 80 grams a day, water intake 80 oz of water. Increase muscle mass. 06/13/23 BMI 32.56 Weight 220.5 Patient has been off Saxenda due to supply issues x1.5 weeks [facility] since January down 6lbs of fat and up 4lbs of muscle. Discussed with patient increasing water intake and protein intake and possibly of getting medication from [facility], [facility] or [facility], Mail order, if not consider [facility]. Talking about slowly titrating back up not to start back on 3mg 01/16/24: BMI 33, Weight 231. 10 lb weight gain since 05/2023. Discussed Zepbound as option, will need PA. Can take up to 30 days for PA to be responded to. Discussed eating high protein lunch and increasing water intake. Denies current issues with constipation 04/14/24: BMI 32.81, Weight 222.2. Patient currently taking Zepound 5mg . Endorses slight nausea. Denies diarrhea / constipation. Encouraged to keep protein intake high and excerise. Will receive MICC injection today in office. Advised to stop zepound next week due to LP on May 01 for hydrocephalous, then continue Zepound a few days after procedure. 06/02/24: BMI 32, Weight 222. Lost 4 lb of fat since last visit. Reports he skips lunch often, only getting about 60 grams of protein. Needs to increase protein intake. Has held Zepbound x 2 weeks in prep for tomorrow. Will refill Zepbound 5 mg subcu today 07/21/24: BMI 32, Weight 218. Congratulated on efforts. Will increase to Zepbound 7.5 mg subcu weekly. Continue adequate protein intake and exrecise. Total time spent with patient was 30 minutes, over half the time being [id number] interaction. Case discussed with collaborating physician Shayla Josue who reviewed the assessment and plan. Chart, medications, labs, vital signs reviewed. Dictation was accomplished with the use of [employer] voice recognition software, prone to medical misidentifications and grammatical errors. This is unintentional and the practitioner does try to identify and correct these, but some could still be present. Please do not hesitate to contact practitioner for clarification. All questions answered to patients satisfaction. Patient verbalized understanding of diagnosis and treatments explained. To call sooner prior to next visit it any questions/concerns arise. 06/02/2024 Hydrocephalus, unspecified (ICD-10 - G91.9) # Hydrocephalus; Undergoing treatment in [facility] on Jun 02 2024, instructed to hold Zepound starting next week # HTN. Currently on antihypertensives, 120/80 mmHg in office today. # Obesity 01/31/23: BMI 32, Weight 221. Continue Saxenda. Patient unsure if he needs refill. Denies side effects. Continue adequate protein intake of 80 grams a day, water intake 80 oz of water. Increase muscle mass. 06/13/23 BMI 32.56 Weight 220.5 Patient has been off Saxenda due to supply issues x1.5 weeks [facility] since January down 6lbs of fat and up 4lbs of muscle. Discussed with patient increasing water intake and protein intake and possibly of getting medication from [facility], [facility] or [facility], Mail order, if not consider [facility]. Talking about slowly titrating back up not to start back on 3mg 01/16/24: BMI 33, Weight 231. 10 lb weight gain since 05/2023. Discussed Zepbound as option, will need PA. Can take up to 30 days for PA to be responded to. Discussed eating high protein lunch and increasing water intake. Denies current issues with constipation 04/14/24: BMI 32.81, Weight 222.2. Patient currently taking Zepound 5mg . Endorses slight nausea. Denies diarrhea / constipation. Encouraged to keep protein intake high and excerise. Will receive MICC injection today in office. Advised to stop zepound next week due to LP on May 01 for hydrocephalous, then continue Zepound a few days after procedure. 06/02/24: BMI 32, Weight 222. Lost 4 lb of fat since last visit. Reports he skips lunch often, only getting about 60 grams of protein. Needs to increase protein intake. Has held Zepbound x 2 weeks in prep for LP tomorrow. Will refill Zepbound 5 mg subcu today Total time spent with patient was 30 minutes, over half the time being [id number] interaction. Case discussed with collaborating physician Shayla Josue who reviewed the assessment and plan. Chart, medications, labs, vital signs reviewed. Dictation was accomplished with the use of [employer] voice recognition software, prone to medical misidentifications and grammatical errors. This is unintentional and the practitioner does try to identify and correct these, but some could still be present. Please do not hesitate to contact practitioner for clarification. All questions answered to patients satisfaction. Patient verbalized understanding of diagnosis and treatments explained. To call sooner prior to next visit it any questions/concerns arise. 04/14/2024 Hydrocephalus, unspecified (ICD-10 - G91.9) # Hydrocephalus; Undergoing treatment in [facility] on May 05 2024, instructed to hold Zepound starting next week # HTN. Currently on antihypertensives, 120/80 mmHg in office today. # Obesity 01/31/23: BMI 32, Weight 221. Continue Saxenda. Patient unsure if he needs refill. Denies side effects. Continue adequate protein intake of 80 grams a day, water intake 80 oz of water. Increase muscle mass. 06/13/23 BMI 32.56 Weight 220.5 Patient has been off Saxenda due to supply issues x1.5 weeks [facility] since January down 6lbs of fat and up 4lbs of muscle. Discussed with patient increasing water intake and protein intake and possibly of getting medication from [facility], [facility] or [facility], Mail order, if not consider [facility]. Talking about slowly titrating back up not to start back on 3mg 01/16/24: BMI 33, Weight 231. 10 lb weight gain since 05/2023. Discussed Zepbound as option, will need PA. Can take up to 30 days for PA to be responded to. Discussed eating high protein lunch and increasing water intake. Denies current issues with constipation 04/14/24: BMI 32.81, Weight 222.2. Patient currently taking Zepound 5mg . Endorses slight nausea. Denies diarrhea / constipation. Encouraged to keep protein intake high and excerise. Will receive MICC injection today in office. Advised to stop zepound next week due to LP on May 01 for hydrocephalous, then continue Zepound a few days after procedure. Total time spent with patient was 30 minutes, over half the time being [id number] interaction. Case discussed with collaborating physician Shayla Josue who reviewed the assessment and plan. Chart, medications, labs, vital signs reviewed. Dictation was accomplished with the use of [employer] voice recognition software, prone to medical misidentifications and grammatical errors. This is unintentional and the practitioner does try to identify and correct these, but some could still be present. Please do not hesitate to contact practitioner for clarification. All questions answered to patients satisfaction. Patient verbalized understanding of diagnosis and treatments explained. To call sooner prior to next visit it any questions/concerns arise. 04/14/2024 Dietary counseling and surveillance (ICD-10 - Z71.3) # Hydrocephalus; Undergoing treatment in [facility] on May 05 2024, instructed to hold Zepound starting next week # HTN. Currently on antihypertensives, 120/80 mmHg in office today. # Obesity 01/31/23: BMI 32, Weight 221. Continue Saxenda. Patient unsure if he needs refill. Denies side effects. Continue adequate protein intake of 80 grams a day, water intake 80 oz of water. Increase muscle mass. 06/13/23 BMI 32.56 Weight 220.5 Patient has been off Saxenda due to supply issues x1.5 weeks [facility] since January down 6lbs of fat and up 4lbs of muscle. Discussed with patient increasing water intake and protein intake and possibly of getting medication from [facility], [facility] or [facility], Mail order, if not consider [facility]. Talking about slowly titrating back up not to start back on 3mg 01/16/24: BMI 33, Weight 231. 10 lb weight gain since 05/2023. Discussed Zepbound as option, will need PA. Can take up to 30 days for PA to be responded to. Discussed eating high protein lunch and increasing water intake. Denies current issues with constipation 04/14/24: BMI 32.81, Weight 222.2. Patient currently taking Zepound 5mg . Endorses slight nausea. Denies diarrhea / constipation. Encouraged to keep protein intake high and excerise. Will receive MICC injection today in office. Advised to stop zepound next week due to LP on May 01 for hydrocephalous, then continue Zepound a few days after procedure. Total time spent with patient was 30 minutes, over half the time being [id number] interaction. Case discussed with collaborating physician Shayla Josue who reviewed the assessment and plan. Chart, medications, labs, vital signs reviewed. Dictation was accomplished with the use of [employer] voice recognition software, prone to medical misidentifications and grammatical errors. This is unintentional and the practitioner does try to identify and correct these, but some could still be present. Please do not hesitate to contact practitioner for clarification. All questions answered to patients satisfaction. Patient verbalized understanding of diagnosis and treatments explained. To call sooner prior to next visit it any questions/concerns arise. 06/02/2024 Dietary counseling and surveillance (ICD-10 - Z71.3) # Hydrocephalus; Undergoing treatment in [facility] on Jun 02 2024, instructed to hold Zepound starting next week # HTN. Currently on antihypertensives, 120/80 mmHg in office today. # Obesity 01/31/23: BMI 32, Weight 221. Continue Saxenda. Patient unsure if he needs refill. Denies side effects. Continue adequate protein intake of 80 grams a day, water intake 80 oz of water. Increase muscle mass. 06/13/23 BMI 32.56 Weight 220.5 Patient has been off Saxenda due to supply issues x1.5 weeks [facility] since January down 6lbs of fat and up 4lbs of muscle. Discussed with patient increasing water intake and protein intake and possibly of getting medication from [facility], [facility] or [facility], Mail order, if not consider [facility]. Talking about slowly titrating back up not to start back on 3mg 01/16/24: BMI 33, Weight 231. 10 lb weight gain since 05/2023. Discussed Zepbound as option, will need PA. Can take up to 30 days for PA to be responded to. Discussed eating high protein lunch and increasing water intake. Denies current issues with constipation 04/14/24: BMI 32.81, Weight 222.2. Patient currently taking Zepound 5mg . Endorses slight nausea. Denies diarrhea / constipation. Encouraged to keep protein intake high and excerise. Will receive MICC injection today in office. Advised to stop zepound next week due to LP on May 01 for hydrocephalous, then continue Zepound a few days after procedure. 06/02/24: BMI 32, Weight 222. Lost 4 lb of fat since last visit. Reports he skips lunch often, only getting about 60 grams of protein. Needs to increase protein intake. Has held Zepbound x 2 weeks in prep for LP tomorrow. Will refill Zepbound 5 mg subcu today Total time spent with patient was 30 minutes, over half the time being [id number] interaction. Case discussed with collaborating physician Shayla Josue who reviewed the assessment and plan. Chart, medications, labs, vital signs reviewed. Dictation was accomplished with the use of [employer] voice recognition software, prone to medical misidentifications and grammatical errors. This is unintentional and the practitioner does try to identify and correct these, but some could still be present. Please do not hesitate to contact practitioner for clarification. All questions answered to patients satisfaction. Patient verbalized understanding of diagnosis and treatments explained. To call sooner prior to next visit it any questions/concerns arise. 07/21/2024 Dietary counseling and surveillance (ICD-10 - Z71.3) # Hydrocephalus; Undergoing treatment in [facility] on Jun 02 2024, instructed to hold Zepound starting next week # HTN. Currently on antihypertensives, 120/80 mmHg in office today. # Obesity 01/31/23: BMI 32, Weight 221. Continue Saxenda. Patient unsure if he needs refill. Denies side effects. Continue adequate protein intake of 80 grams a day, water intake 80 oz of water. Increase muscle mass. 06/13/23 BMI 32.56 Weight 220.5 Patient has been off Saxenda due to supply issues x1.5 weeks [facility] since January down 6lbs of fat and up 4lbs of muscle. Discussed with patient increasing water intake and protein intake and possibly of getting medication from [facility], [facility] or [facility], Mail order, if not consider [facility]. Talking about slowly titrating back up not to start back on 3mg 01/16/24: BMI 33, Weight 231. 10 lb weight gain since 05/2023. Discussed Zepbound as option, will need PA. Can take up to 30 days for PA to be responded to. Discussed eating high protein lunch and increasing water intake. Denies current issues with constipation 04/14/24: BMI 32.81, Weight 222.2. Patient currently taking Zepound 5mg . Endorses slight nausea. Denies diarrhea / constipation. Encouraged to keep protein intake high and excerise. Will receive MICC injection today in office. Advised to stop zepound next week due to LP on May 01 for hydrocephalous, then continue Zepound a few days after procedure. 06/02/24: BMI 32, Weight 222. Lost 4 lb of fat since last visit. Reports he skips lunch often, only getting about 60 grams of protein. Needs to increase protein intake. Has held Zepbound x 2 weeks in prep for LP tomorrow. Will refill Zepbound 5 mg subcu today 07/21/24: BMI 32, Weight 218. Congratulated on efforts. Will increase to Zepbound 7.5 mg subcu weekly. Continue adequate protein intake and exrecise. Total time spent with patient was 30 minutes, over half the time being [id number] interaction. Case discussed with collaborating physician Shayla Josue who reviewed the assessment and plan. Chart, medications, labs, vital signs reviewed. Dictation was accomplished with the use of [employer] voice recognition software, prone to medical misidentifications and grammatical errors. This is unintentional and the practitioner does try to identify and correct these, but some could still be present. Please do not hesitate to contact practitioner for clarification. All questions answered to patients satisfaction. Patient verbalized understanding of diagnosis and treatments explained. To call sooner prior to next visit it any questions/concerns arise. 09/16/2024 Dietary counseling and surveillance (ICD-10 - Z71.3) # Hydrocephalus; Undergoing treatment in [facility] on Jun 02 2024 # HTN. Currently on antihypertensives, 120/80 mmHg in office today. # Obesity 01/31/23: BMI 32, Weight 221. Continue Saxenda. Patient unsure if he needs refill. Denies side effects. Continue adequate protein intake of 80 grams a day, water intake 80 oz of water. Increase muscle mass. 06/13/23 BMI 32.56 Weight 220.5 Patient has been off Saxenda due to supply issues x1.5 weeks [facility] since January down 6lbs of fat and up 4lbs of muscle. Discussed with patient increasing water intake and protein intake and possibly of getting medication from [facility], [facility] or [facility], Mail order, if not consider [facility]. Talking about slowly titrating back up not to start back on 3mg 01/16/24: BMI 33, Weight 231. 10 lb weight gain since 05/2023. Discussed Zepbound as option, will need PA. Can take up to 30 days for PA to be responded to. Discussed eating high protein lunch and increasing water intake. Denies current issues with constipation 04/14/24: BMI 32.81, Weight 222.2. Patient currently taking Zepound 5mg . Endorses slight nausea. Denies diarrhea / constipation. Encouraged to keep protein intake high and excerise. Will receive MICC injection today in office. Advised to stop zepound next week due to LP on May 01 for hydrocephalous, then continue Zepound a few days after procedure. 06/02/24: BMI 32, Weight 222. Lost 4 lb of fat since last visit. Reports he skips lunch often, only getting about 60 grams of protein. Needs to increase protein intake. Has held Zepbound x 2 weeks in prep for LP tomorrow. Will refill Zepbound 5 mg subcu today 07/21/24: BMI 32, Weight 218. Congratulated on efforts. Will increase to Zepbound 7.5 mg subcu weekly. Continue adequate protein intake and exrecise. 09/16/24: BMI 32, Weight 213. Never increase Zepbound, will increase to 7.5 mg. Doing well wiht fat loss. Congratulated on efforts. Total time spent with patient was 30 minutes, over half the time being suom-ha-upub interaction. Case discussed with collaborating physician Sarah Josue who reviewed the assessment and plan. Chart, medications, labs, vital signs reviewed. Dictation was accomplished with the use of [employer] voice recognition software, prone to medical misidentifications and grammatical errors. This is unintentional and the practitioner does try to identify and correct these, but some could still be present. Please do not hesitate to contact practitioner for clarification. All questions answered to patients satisfaction. Patient verbalized understanding of diagnosis and treatments explained. To call sooner prior to next visit it any questions/concerns arise. 02/25/2025 Hydrocephalus, unspecified (ICD-10 - G91.9) # Hydrocephalus; Undergoing treatment in [place]. Followed by Dr. Lee locally. # HTN. Currently on antihypertensives, 120/80 mmHg in office today. Discotninued due to low HR # Obesity: Formerly on Zepbound, copay too high # BRadycardia: EKG showing bradycardia. Reportedly issue in past. WIll obtain cardiology records. EKG shows bradycarida. Case discussed with collaborating physician Sarah Josue who reviewed the assessment and plan. Chart, medications, labs, vital signs reviewed. Dictation was accomplished with the use of [employer] voice recognition software, prone to medical misidentifications and grammatical errors. This is unintentional and the practitioner does try to identify and correct these, but some could still be present. Please do not hesitate to contact practitioner for clarification. All questions answered to patients satisfaction. Patient verbalized understanding of diagnosis and treatments explained. To call sooner prior to next visit it any questions/concerns arise. 02/25/2025 Hyperlipidemia, unspecified hyperlipidemia type (ICD-10 - E78.5) 02/25/2025 Hypothyroidism, unspecified type (ICD-10 - E03.9) 02/25/2025 Dietary counseling and surveillance (ICD-10 - Z71.3) # Hydrocephalus; Undergoing treatment in [place]. Followed by Dr. Lee locally. # HTN. Currently on antihypertensives, 120/80 mmHg in office today. Discotninued due to low HR # Obesity: Formerly on Zepbound, copay too high # BRadycardia: EKG showing bradycardia. Reportedly issue in past. WIll obtain cardiology records. EKG shows bradycarida. Case discussed with collaborating physician Sarah Josue who reviewed the assessment and plan. Chart, medications, labs, vital signs reviewed. Dictation was accomplished with the use of Dragon voice recognition software, prone to medical misidentifications and grammatical errors. This is unintentional and the practitioner does try to identify and correct these, but some could still be present. Please do not hesitate to contact practitioner for clarification. All questions answered to patients satisfaction. Patient verbalized understanding of diagnosis and treatments explained. To call sooner prior to next visit it any questions/concerns arise. 02/25/2025 Encounter for blood pressure examination (ICD-10 - Z01.30) # Hydrocephalus; Undergoing treatment in [place]. Followed by Dr. Lee locally. # HTN. Currently on antihypertensives, 120/80 mmHg in office today. Discotninued due to low HR # Obesity: Formerly on Zepbound, copay too high # BRadycardia: EKG showing bradycardia. Reportedly issue in past. WIll obtain cardiology records. EKG shows bradycarida. Case discussed with collaborating physician Sarah Josue who reviewed the assessment and plan. Chart, medications, labs, vital signs reviewed. Dictation was accomplished with the use of [employer] voice recognition software, prone to medical misidentifications and grammatical errors. This is unintentional and the practitioner does try to identify and correct these, but some could still be present. Please do not hesitate to contact practitioner for clarification. All questions answered to patients satisfaction. Patient verbalized understanding of diagnosis and treatments explained. To call sooner prior to next visit it any questions/concerns arise. 02/25/2025 Anemia due to vitamin B12 deficiency, unspecified B12 deficiency type (ICD-10 - D51.9) Plan Of Treatment Pending Test Test Name Order Date EKG 02/25/2025 LIPID PANEL, STANDARD 02/25/2025 LIPID PANEL, STANDARD 02/25/2025 COMPREHENSIVE METABOLIC PANEL 02/25/2025 COMPREHENSIVE METABOLIC PANEL 02/25/2025 CBC (INCLUDES DIFF/PLT) 02/25/2025 CBC (INCLUDES DIFF/PLT) 02/25/2025 URINALYSIS, COMPLETE 02/25/2025 URINALYSIS, COMPLETE 02/25/2025 VITAMIN B12 02/25/2025 LYME AB SCREEN 02/25/2025 LYME AB SCREEN 02/25/2025 TSH+T4F+T3Free 02/25/2025 TSH+T4F+T3Free 02/25/2025 Next Appt Details Provider Name:ERON TRISTAN, 04/29/2025 08:45:00 AM, [address], [place], [address], Insurance Providers Payer Name Payer Address Payer Phone Subscriber Number Group Number Insured Name Patient Relationship to Insured Coverage Start Date Coverage End Date [facility] [address] [place] [address] [id number] Bhupinder Hylton Self - patient is the insured Medications Administered Medication Instructions Date of Administration Dosage Notes MICC B12 INJECTION 04/06/2021 [id number] MICC B12 INJECTION 04/20/2021 Lot # [id number] MICC B12 INJECTION 05/09/2021 lot # [id number] MICC B12 INJECTION 06/06/2021 Lot # [id number] MICC B12 INJECTION 07/20/2021 Lot # [id number] MICC B12 INJECTION 08/14/2021 lot # [id number] MICC B12 INJECTION 10/25/2021 [id number] MICC B12 INJECTION 03/26/2022 1 MICC B12 INJECTION 08/29/2022 lot 14 [id number] MICC B12 INJECTION 11/08/2022 [id number] MICC B12 INJECTION 12/17/2022 [id number] MICC B12 INJECTION 01/31/2023 lot# [id number] MICC B12 INJECTION 06/13/2023 [id number] -[id number] MICC B12 INJECTION 01/16/2024 lot#[id number] MICC B12 INJECTION 04/14/2024 1 mL LOT E1 6a01.24 Medical (General) History Medical History History ICD Code High cholesterol E78.00 Weight gain R63.5 Anxiety F41.9 Vision impairment, both eyes, impairment level not further specified 369.20 Seasonal allergies J30.2 Essential (primary) hypertension I10 Hyperlipidemia, unspecified E78.5 Obesity (BMI 30-39.9) E66.9 Anxiety disorder, unspecified F41.9 Depression, unspecified F32.A Hydrocephalus, unspecified G91.9
[2025-03-22 10:15] LABS: Appearance Urine Clear; Color Urine Yellow; Glucose Urine UA Negative (Negative); Leukocyte Esterase Urine Small (1+) (Negative); Nitrite Urine Negative (Negative); UMIC TRIGGER UA YES; Urine Blood Negative (Negative); Urine Ketones Negative (Negative); Urine Protein Negative (Neg-Trace)
[2025-03-22 10:22] LABS: MANUAL DIFF FLAG NO
[2025-03-22 10:23] LABS: Bacteria Urine None Seen (None Seen); Hyaline Casts Urine 0-2 /LPF (0-2); RBC Urine 0-2 /HPF (0-2); Squamous Epithelial Cell Urine 0-2 /HPF (0-2)
[2025-03-22 10:29] LABS: Basophils Absolute Auto 0.1 X10*3/uL (0.0-0.2); Basophils Percent Auto 0.6 % (0-2); Eosinophils Absolute Auto 0.1 X10*3/uL (0.0-0.4); Eosinophils Percent Auto 1.2 % (0-4); Hematocrit 49.3 % (42.0-52.0); Hemoglobin 15.8 g/dl (14.0-18.0); Imm Gran Abs Auto 0.03 X10*3/uL (0.00-0.03); Imm Gran Pct Auto 0.4 % (0.0-0.4); Lymphocytes Absolute Auto 2.9 X10*3/uL (1.2-4.9); Mean Corpuscular Hemoglobin 26.6 pg (27.0-33.0); Mean Corpuscular Volume 83.1 fL (80.0-98.0); Mean Platelet Volume 9.9 fL (9.4-12.4); Monocytes Absolute Auto 0.6 X10*3/uL (0.1-1.2); Monocytes Percent Auto 7.1 % (2-11); Neutrophils Absolute Auto 4.5 x10*3/uL (2.0-8.3); Neutrophils Percent Auto 54.7 % (45-73); Platelet Count 208 X10*3/uL (160-400); Red Blood Count 5.93 X10*6/uL (4.60-5.80); Red Cell Distribution Width 13.6 % (11.0-16.0); White Blood Count 8.2 X10*3/uL (4.8-10.8)
[2025-03-22 11:10] LABS: Alanine Aminotransferase 34 U/L (0-40); Albumin Level 4.2 g/dL (3.5-5.0); Alkaline Phosphatase 70 U/L (39-117); Anion Gap 9 (12-20); Aspartate Amino Transferase 25 U/L (5-37); Bilirubin Total 0.8 mg/dL (0.0-1.0); Blood Urea Nitrogen 18 mg/dL (9-16); Carbon Dioxide 21 mmol/L (22-29); Chloride 110 mmol/L (96-108); Cholesterol 152 mg/dL (<200); Estimated Glomerular Filt Rate > 60; Free T4 (Free Thyroxine) 0.93 ng/dL (0.71-1.85); Glucose Random 102 mg/dL (60-115); HDL Cholesterol 38 mg/dL (>40); LDL Cholesterol Calculated 99 mg/dL (<100); Sodium 136 mmol/L (135-145); Thyroid Stimulating Hormone 1.03 uIU/mL (0.32-4.0); Total Protein 7.2 g/dL (6.5-8.0); Triglycerides 79 mg/dL (<150)
[2025-03-22 11:22] LABS: Vitamin B12 482 pg/mL (200-900)
[2025-03-23 04:58] LABS: Triiodothyronine T3 Free 3.4 pg/mL (2.3-4.2)
[2025-03-23 06:13] LABS: Lyme Abs Screen <0.90 index
== END 2025-03-22 08:41 | disposition home or self-care (01) ==
LOC: HO.HMGCLDS 08:40
PROVIDERS: PCP Physician Assistant Medical; Visit Provider Physician Assistant Medical
DX: Z00.00 Encounter for general adult medical examination without abnormal findings (principal); R00.1 Bradycardia, unspecified; E03.9 Hypothyroidism, unspecified; D51.9 Vitamin B12 deficiency anemia, unspecified; E78.5 Hyperlipidemia, unspecified
CPT/HCPCS: 36415; 80053; 80061; 81001; 82607; 84439; 84443; 84481; 85025; 86617; 86618